=== PATIENT | male | born 1975 | race Caucasian/White ===

== ENCOUNTER 2017-11-20 08:17 | Emergency (ER) | payer OTHER ==
[~2017-11-20 08:17] MED LIST: ADVIL200 M2 PO; ALBUTEROL SULF8.5 GM IH; FLEXERIL10 MG PO; MOBIC7.5 MG PO; MOTRIN800 MG PO; NORCO 5/3251 TABLET PO; SINGULAIR10 MG PO; VICODIN ES 71 TABLET PO
[2017-11-20 08:30] LABS: BASOPHIL (%) 0.9 % (0-1); BASOPHIL COUNT 0.1 K/uL (0-0.1); EOSINOPHIL (%) 2.9 % (0-5); EOSINOPHIL COUNT 0.3 K/uL (0-0.3); HEMATOCRIT 45.4 % (38.0-50.0); HEMOGLOBIN 15.9 G/DL (12.5-16.6); LYMPHOCYTE (%) 18.6 % (15-42); LYMPHOCYTE COUNT 1.7 K/uL (1.0-2.8); MCH 31.7 PG (29.0-34.0); MCV 90.6 FL (86-99); MONOCYTE (%) 9.1 % (3-12); MONOCYTE COUNT 0.8 K/uL (0-0.8); NEUTROPHIL (%) 67.5 % (45-76); NEUTROPHIL COUNT 6.2 K/uL (1.8-6.4); PLATELET COUNT 165 K/uL (156-360); RBC DIS.WIDTH-CV 12.5 % (11.8-14.6); RBC DIS.WIDTH-SD 40.8 % (39-53); RED BLOOD COUNT 5.01 M/uL (4.00-5.50); WHITE BLOOD COUNT 9.2 K/uL (4.1-10.2)
[2017-11-20 08:40] LABS: AMYLASE 68 IU/L (1-118); CHLORIDE 109 mEq/L (99-109); POTASSIUM 4.1 mEq/L (3.7-5.4); SODIUM 139 mEq/L (136-147)
[2017-11-20 08:42] LABS: GLUCOSE 105 mg/dL (70-99)
[2017-11-20 08:45] LABS: SERUM ETHYL ALCOHOL < 10 mg/dL
[2017-11-20 08:46] LABS: CREATININE 0.9 mg/dL (0.6-1.3); GFR ESTIMATE (CALCULATED) > 59 mL/min/ (58.99-99999)
[2017-11-20 08:47] LABS: UREA NITROGEN (BUN) 20 mg/dL (9-23)
[2017-11-20 08:49] LABS: LIPASE 93 U/L (1.0-51.0)
[2017-11-20] MEDS ORDERED: PERCOCET 5/31 TABLET PO (09:58)
== END 2017-11-20 10:31 | disposition home or self-care (01) ==
LOC: TRA 08:17
PROVIDERS: Emergency Medicine
DX: S20.219A Contusion of unspecified front wall of thorax, initial encounter (principal); S80.01XA Contusion of right knee, initial encounter; S30.0XXA Contusion of lower back and pelvis, initial encounter; M51.34 Other intervertebral disc degeneration, thoracic region; R51 Headache; V23.4XXA Motorcycle driver injured in collision with car, pick-up truck or van in traffic accident, initial encounter; F17.200 Nicotine dependence, unspecified, uncomplicated; G89.29 Other chronic pain; I10 Essential (primary) hypertension; Z88.0 Allergy status to penicillin; Z88.2 Allergy status to sulfonamides
CPT/HCPCS: 70450; 71260; 72125; 72129; 72132; 73564; 73590; 74177; 80048; 81003; 82150; 83690; 85025; 86850; 86900; 86901; G0480